=== PATIENT | female | born 1975 | race Caucasian/White ===

== ENCOUNTER 2017-07-18 00:15 | Outpatient (CLI) | payer MEDICAID ==
[~2017-07-18 00:15] MED LIST: ESCI10TA45 PO; FENO45CA PO; FISH1CAP14 PO; HYDR-3965 PO; INSU100I12 SQ; LANS30TA4 PO; LEVO100T46 PO; LIRA0.6P2 SQ; LIRA0.6P2 SUBCUT; LISI-222 PO; PENI500T2 PO; SAXA1TBM3 PO; VIT D PO
== END 2017-07-18 23:59 | disposition home or self-care (01) ==
LOC: DIABETIC 00:15
PROVIDERS: ATTEND Surgery
DX: E66.01 Morbid (severe) obesity due to excess calories (principal); E11.9 Type 2 diabetes mellitus without complications; Z87.891 Personal history of nicotine dependence
CPT/HCPCS: 97802

== ENCOUNTER 2017-09-11 02:52 | Outpatient (CLI) | payer MEDICAID | END 2017-09-11 23:59 | disposition home or self-care (01) | LOC: DIABETIC 02:52 | PROVIDERS: ATTEND Surgery | DX: E66.01 Morbid (severe) obesity due to excess calories (principal); E11.9 Type 2 diabetes mellitus without complications; Z79.899 Other long term (current) drug therapy; Z87.891 Personal history of nicotine dependence | CPT/HCPCS: 97802 ==

== ENCOUNTER 2017-11-21 04:31 | Outpatient (CLI) | payer MEDICAID | END 2017-11-21 23:59 | disposition home or self-care (01) | LOC: DIABETIC 04:31 | PROVIDERS: ATTEND Surgery | DX: E66.01 Morbid (severe) obesity due to excess calories (principal); E11.9 Type 2 diabetes mellitus without complications; Z87.891 Personal history of nicotine dependence; Z79.4 Long term (current) use of insulin | CPT/HCPCS: 97802 ==

== ENCOUNTER 2017-12-19 03:13 | Outpatient (CLI) | payer MEDICAID | END 2017-12-19 23:59 | disposition home or self-care (01) | LOC: DIABETIC 03:13 | PROVIDERS: ATTEND Surgery | DX: E66.01 Morbid (severe) obesity due to excess calories (principal); E11.9 Type 2 diabetes mellitus without complications; Z87.891 Personal history of nicotine dependence | CPT/HCPCS: 97802 ==

== ENCOUNTER 2018-01-18 02:00 | Outpatient (CLI) | payer MEDICAID | END 2018-01-18 23:59 | disposition home or self-care (01) | LOC: DIABETIC 02:00 | PROVIDERS: ATTEND Surgery | DX: E66.01 Morbid (severe) obesity due to excess calories (principal); E11.9 Type 2 diabetes mellitus without complications; Z79.4 Long term (current) use of insulin; Z87.891 Personal history of nicotine dependence | CPT/HCPCS: 97802 ==

== ENCOUNTER 2018-02-15 00:41 | Outpatient (CLI) | payer MEDICAID | END 2018-02-15 23:59 | disposition home or self-care (01) | LOC: DIABETIC 00:41 | PROVIDERS: ATTEND Surgery | DX: E66.01 Morbid (severe) obesity due to excess calories (principal); E11.9 Type 2 diabetes mellitus without complications; Z79.4 Long term (current) use of insulin; Z87.891 Personal history of nicotine dependence | CPT/HCPCS: 97802 ==

== ENCOUNTER 2019-08-23 20:56 | Emergency (ER) | payer MEDICAID ==
[~2019-08-23] VITALS: Ht 160 cm; Wt 68.2 kg
[2019-08-23 21:25] VITALS: BP 121/82
== END 2019-08-23 21:28 ==
LOC: ER 20:56
DX: Z04.1 Encounter for examination and observation following transport accident (principal); F15.10 Other stimulant abuse, uncomplicated; Z79.899 Other long term (current) drug therapy; Z79.4 Long term (current) use of insulin; V87.7XXA Person injured in collision between other specified motor vehicles (traffic), initial encounter; Y93.89 Activity, other specified; Y92.488 Other paved roadways as the place of occurrence of the external cause; Y99.8 Other external cause status
CPT/HCPCS: 82948; 99283

== ENCOUNTER 2024-10-08 18:20 | Emergency (ER) | payer MEDICAID ==
[~2024-10-08] VITALS: Ht 160 cm; Wt 61.3 kg
[2024-10-08 18:54] LABS: MEAN PLATELET VOLUME 7.8 FL (7.4-10.4); RED CELL DISTRIBUTION WIDTH 17.6 % (11.5-14.5)
[2024-10-08 19:19] LABS: CREATININE 0.66 MG/DL (0.40-0.90); PRO BRAIN NATRIURETIC PEPTIDE 175 PG/ML (0-125); TOTAL CARBON DIOXIDE 28.9 MMOL/L (24-32); eCRCL 88 ML/MIN; eGFR > 90 ML/MIN
--- NOTE | 2024-10-08 19:21 | RADIOLOGY REPORT ---
EXAM: DI CHEST,SINGLE VIEW CLINICAL HISTORY: CP TECHNIQUE: Single PA view of the chest WID: COMPARISON: None FINDINGS: Lines and tubes: None Chest: The heart size and pulmonary vasculature is within normal limits. Moderate airspace consolidation in the right upper lobe. No pneumothorax or pleural effusion. The osseous structures are grossly intact. IMPRESSION: 1. Moderate-sized right upper lobe pneumonia.
--- NOTE | 2024-10-08 19:34 | Physician Documentation ---
History of Present Illness ~ General Chief Complaint: Multiple Medical Complaints Stated Complaint: MULTIPLE MEDICAL ISSUES History of Present Illness Initial Comments This is a 48-year-old female who presents with pain to chest, abdomen, and back for the past three days, patient describes pain as burning. Medication Reconciliation Allergies: Coded Allergies: No Known Allergies (Unverified , 04/20/12) Scheduled Escitalopram Oxalate* (Lexapro*), 10 MG PO DAILY, (Reported) Fenofibric Acid (Trilipix), 45 MG PO HS, (Reported) Fish,Saf,Flx,Brg Oils/O3,6,9#2 (Rnob-Jkpz-Okiqtj Oil Softgel), 1 EACH PO BID, (Reported) Insulin Detemir (Levemir), 50 UNIT SQ BID, (Reported) Lansoprazole (Prevacid), 30 MG PO DAILY, (Reported) Levothyroxine Sodium* (Levoxyl*), 100 MCG PO DAILY, (Reported) Liraglutide (Victoza 3-Pedro), 1.2 MG SQ HS, (Reported) Liraglutide (Victoza 3-Pedro), 1.8 MG SUBCUT DAILY, (Reported) Lisinopril* (Lisinopril*), 2.5 MG PO HS, (Reported) Penicillin V Potassium* (Penicillin VK*), 500 MG PO Q6H Saxagliptin Hcl/Metformin Hcl (Kombiglyze Xr 5-1,000 Mg Tab), 1 EACH PO HS, (Reported) [Vit D], PO DAILY, (Reported) Scheduled PRN Hydrocodone Bit/Acetaminophen 5/325 MG ([place] 5/325 MG), 1 TAB PO Q4H PRN for moderate or severe pain Past Medical History Past Medical History: No Pertinent History Past Surgical History: noncontributory Drug Use: methamphetamine Lives with: Family Lives In: Home Review of Systems ROS As stated above in the HPI, otherwise all systems are reviewed and negative. Physical Exam Physical Exam Vital Signs: Temperature: 99.3, Source: Oral, Heart Rate: 113, Respiratory Rate: 16, BP: 106/75, Pulse Oximetry: 100, Weight: 61.320 Oxygen Flow Rate: 0 Physical Exam VITALS: Reviewed and as above. GENERAL: Alert, nontoxic appearing, no apparent distress. HEENT: RESPIRATORY: No increased work of breathing, no respiratory distress, speaking in full clear sentences CHEST: CV: BACK: GI: MUSCULOSKELETAL: SKIN: NEURO: PSYCH: Progress Results/Orders Results/Orders Vital Signs 10/08/24 18:32 Temp 99.3 Pulse 113 Resp 16 B/P (MAP) 106/75 Pulse Ox 100 O2 Flow Rate 0 Laboratory Tests Test 10/08/24 18:46 White Blood Count 13.3 H Red Blood Count 4.66 Hemoglobin 12.5 Hematocrit 37.3 Mean Corpuscular Volume 80.1 Mean Corpuscular Hemoglobin 26.9 L Mean Corpuscular Hemoglobin Concent 33.6 Red Cell Distribution Width 17.6 H Platelet Count 325 Mean Platelet Volume 7.8 Neutrophils (%) (Auto) 83.7 H Lymphocytes (%) (Auto) 9.5 L Monocytes (%) (Auto) 6.1 Eosinophils (%) (Auto) 0.4 Basophils (%) (Auto) 0.3 Neutrophils # (Auto) 11.2 H Lymphocytes # (Auto) 1.3 Monocytes # (Auto) 0.8 Eosinophils # (Auto) 0.0 Basophils # (Auto) 0.0 CBC Comment Sodium Level 136 Potassium Level 3.9 Chloride Level 100 Carbon Dioxide Level 28.9 Anion Gap 7 L Blood Urea Nitrogen 8 Creatinine 0.66 Estimated GFR/1.73 m2 > 90 BUN/Creatinine Ratio 12.1 Glucose Level 218 H Calcium Level 9.1 Troponin I High Sensitivity 16 Pro-B-Type Natriuretic Peptide 175 H Albumin 2.8 L Lipase 25 Chemistry Comments Medical Decision Making Findings MSE performed in triage and patient returned to ED lobby by nursing staff to await available ED room Departure Referrals: NO PRIMARY CARE PROVIDER (PCP) ALYCE ARELLANO NURSING ASSISTANT Oct 08, 2024 19:34
[2024-10-08 21:45] VITALS: BP 118/76; PULSE 113; RESP 14; TEMP 97.7; O2SAT 95
--- NOTE | 2024-10-09 06:46 | ELECTROCARDIOGRAPH REPORT ---
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 Laurita Frey Measurements Intervals [place] Rate: 112 P: 63 NC: 144 QRS: 8 QRSD: 85 T: 30 QT: 312 QTc: 426 Interpretive Statements Sinus tachycardia Consider right atrial enlargement Low voltage, precordial leads Baseline wander in lead(s) II,III,aVF Electronically Signed On 10-10-2024 0:30:[address] Laurita Frey Please click the below link to view image of tracing.
[2024-10-09] MEDS ORDERED: METF-1203 PO (20:15)
[2024-10-09] MEDS ORDERED: CHOL20002 PO (20:15)
[2024-10-09] MEDS ORDERED: METH-797 PO (20:15)
[2024-10-09] MEDS ORDERED: PANT40TA54 PO (20:15)
[2024-10-09] MEDS ORDERED: ATOR10TA70 PO (20:15)
[2024-10-09] MEDS ORDERED: LANTUS SQ (20:15)
[2024-10-10] MEDS ORDERED: LEVO750T68 PO (10:52)
[2024-10-10] MEDS ORDERED: LACT1CAP26 PO (10:52)
[2024-10-10] MEDS ORDERED: LANTUS SQ (10:52)
[2024-10-10] MEDS ORDERED: SACC250C9 PO (11:24)
== END 2024-10-09 02:11 | disposition left against medical advice (07) ==
LOC: ER 18:21
DX: R07.9 Chest pain, unspecified (principal); R10.9 Unspecified abdominal pain; M54.9 Dorsalgia, unspecified; R06.02 Shortness of breath
CPT/HCPCS: 36415; 71045; 80048; 83690; 83880; 84484; 85025; 93005; 99285

== ENCOUNTER 2024-10-09 04:43 | Inpatient (IN) | payer MEDICAID ==
[~2024-10-09] VITALS: Ht 160 cm; Wt 61.4 kg
--- NOTE | 2024-10-09 05:18 | Physician Documentation ---
History of Present Illness ~ Chief Complaint: Chest Pain Stated Complaint: MULTIPLE COMPLAINTS Time Seen by MD: 05:11 OK to notify your PCP?: Yes Source: patient, RN/MD, RN notes reviewed, old records Mode of Arrival: POV Exam Limitations: no limitations HPI BED 07 This patient is a 48 y/o female who presents to ED with chest pain, back pain, SOB, and fever. Patient was here earlier [facility], and eloped prior to finishing her workup. She was contacted [facility] and told to come back as her Xray shows that she had a right upper lobe pneumonia. Patient was asked more about her symptoms, and states she does not have a cough, but has had body aches, chills, fever, and chest pain (worse with breathing) which has been ongoing for 3 days. She has not been around anybody sick that she knows of. Patient denies any other associated symptoms at this time. Patient denies any alleviating or exacerbating factors. Medication Reconciliation Allergies: Coded Allergies: No Known Allergies (Unverified , 10/09/24) Scheduled Escitalopram Oxalate* (Lexapro*), 10 MG PO DAILY, (Reported) Fenofibric Acid (Trilipix), 45 MG PO HS, (Reported) Fish,Saf,Flx,Brg Oils/O3,6,9#2 (Ovaw-Phmj-Srtalp Oil Softgel), 1 EACH PO BID, (Reported) Insulin Detemir (Levemir), 50 UNIT SQ BID, (Reported) Lansoprazole (Prevacid), 30 MG PO DAILY, (Reported) Levothyroxine Sodium* (Levoxyl*), 100 MCG PO DAILY, (Reported) Liraglutide (Victoza 3-Pedro), 1.2 MG SQ HS, (Reported) Liraglutide (Victoza 3-Pedro), 1.8 MG SUBCUT DAILY, (Reported) Lisinopril* (Lisinopril*), 2.5 MG PO HS, (Reported) Penicillin V Potassium* (Penicillin VK*), 500 MG PO Q6H Saxagliptin Hcl/Metformin Hcl (Kombiglyze Xr 5-1,000 Mg Tab), 1 EACH PO HS, (Reported) [Vit D], PO DAILY, (Reported) Scheduled PRN Hydrocodone Bit/Acetaminophen 5/325 MG ([place] 5/325 MG), 1 TAB PO Q4H PRN for moderate or severe pain Past Medical History Past Medical History: No Pertinent History Past Surgical History: noncontributory Drug Use: methamphetamine Lives with: Family Lives In: Home Review of Systems All Other Systems at this time: Reviewed and Negative Physical Exam Vital Signs: RN Vital Signs have been reviewed: Yes, Temperature: 98.3, Source: Oral, Heart Rate: 107, Respiratory Rate: 16, BP: 104/67, Pulse Oximetry: 97, Weight: 62.000 Oxygen Flow Rate: 0 Physical Exam General: The patient is ill appearing. No acute distress. Skin: Skin is warm to touch. Diaphoretic. HEENT: Head was normocephalic and atraumatic. Eyes - pupils equal, round, reactive to light and accommodation. Extraocular movements were intact. Conjunctivae were nonicteric. The mouth and oropharynx were clear with moist mucous membranes. There were no pharyngeal exudates or erythema. Neck: Supple and nontender. There was no jugular venous distention, lymphadenopathy, thyromegaly or masses. Chest: Clear to auscultation bilaterally without wheezes, rales or rhonchi. No accessory muscle use. No dullness to percussion. Heart: Rate regular and rhythmic. S1, S2. No murmurs. Palpation of the chest wall was normal. No rubs or thrills. Abdomen: Soft, nontender and nondistended. Positive bowel sounds. No guarding or rebound. No hepatosplenomegaly or palpable masses. Extremities: No cyanosis, clubbing or edema. The patient moves all extremities. Pulses were equal and symmetric. Neurologic: Motor and sensation grossly intact. A & O x4. Psychologic: The patient was oriented to person, place and time. Progress Progress Note 0526: Paged Hospitalist 0532: Case discussed with hospitalist who agrees to evaluate patient for admission. Results/Orders Reviewed/noted all lab results: Yes Results/Orders Orders - LUCAS MEEKS MD Electrocardiogram (10/09/24 04:57) MG (10/09/24 05:23) Culture Blood (10/09/24 05:23) Normal Saline 1000ml (0.9% Sodium Chlori (10/09/24 05:25) BMP (10/09/24 05:23) Page Hospitalist (10/09/24 05:26) Fill Out Med Reconciliation (10/09/24 05:26) Hgb A1c (10/09/24 05:38) PHOS (10/09/24 05:38) Completed Orders - LUCAS MEEKS MD Cbc/Diff (10/09/24 05:23) Procalcitonin (10/09/24 05:23) Acetaminophen 325mg Tablet (Tylenol Tabl (10/09/24 05:23) Ceftriaxone 2gm/D5w 50ml Bag (Rocephin 2 (10/09/24 05:25) Hs Troponin I W Calculations (10/09/24 05:23) Azithromycin/Ns 500mg/250ml (Zithromax/N (10/09/24 05:25) Morphine 4mg/Ml Inj. (Morphine Inj.) (10/09/24 05:25) Ketorolac Trometh 15mg/Ml Vial (Toradol (10/09/24 05:25) Lacticsepsis (10/09/24 05:23) Ua W/Microscopic, Cult If Ind (10/09/24 05:38) Medications Received in ER Medications (Trade) Dose Ordered Sig/[place]arshall Route PRN Reason Start Time Stop Time Status Last Admin Dose Admin Sodium Chloride 2,000 ml @ 666.666 mls/hr ONCE ONCE IV 10/09/24 05:25 10/09/24 08:24 10/09/24 06:05 666.666 MLS/HR (Tylenol tablet) 650 mg ONCE STAT PO 10/09/24 05:23 10/09/24 05:27 DC 10/09/24 06:17 650 MG Ceftriaxone Sodium/Dextrose 50 ml @ 100 mls/hr ONCE ONCE IV 10/09/24 05:25 10/09/24 05:54 DC 10/09/24 06:13 100 MLS/HR (Toradol injection) 15 mg ONCE ONCE IV 10/09/24 05:25 10/09/24 05:27 DC 10/09/24 06:18 15 MG Vital Signs 10/09/24 10/09/24 04:44 05:00 Temp 98.8 98.3 Pulse 109 107 Resp 18 16 B/P (MAP) 118/73 104/67 (79) Pulse Ox 97 97 O2 Flow Rate 0 0 Laboratory Tests Test 10/09/24 05:38 White Blood Count 12.8 H Red Blood Count 4.00 L Hemoglobin 10.7 L Hematocrit 31.9 L Mean Corpuscular Volume 79.6 Mean Corpuscular Hemoglobin 26.7 L Mean Corpuscular Hemoglobin Concent 33.5 Red Cell Distribution Width 17.1 H Platelet Count 272 Mean Platelet Volume 8.2 Neutrophils (%) (Auto) 80.5 H Lymphocytes (%) (Auto) 9.8 L Monocytes (%) (Auto) 9.1 Eosinophils (%) (Auto) 0.3 Basophils (%) (Auto) 0.3 Neutrophils # (Auto) 10.3 H Lymphocytes # (Auto) 1.3 Monocytes # (Auto) 1.2 H Eosinophils # (Auto) 0.0 Basophils # (Auto) 0.0 CBC Comment Urine Specimen Description Cln catch midstream Urine Color Yellow Urine Clarity Slightly cloudy Urine pH 6.0 Urine Specific [place] 1.025 Urine Protein 100 H Urine Glucose (UA) Negative Urine Ketones 15 H Urine Occult Blood Moderate H Urine Nitrite Negative Urine Bilirubin Small Urine Urobilinogen 2.0 H Urine Leukocyte Esterase Negative Urine RBC 3-10 Urine WBC 0-4 Urine Squamous Epithelial Cells Moderate Urine Bacteria 2+ Urine Mucus Moderate Urine Culture Indicated Not ind Volume Urine Centrifuged 10 ml Urine Comment Sodium Level 134 L Potassium Level 3.3 L Chloride Level 98 L Carbon Dioxide Level 27.7 Anion Gap 8 Blood Urea Nitrogen 11 Creatinine 0.68 Estimated GFR/1.73 m2 > 90 BUN/Creatinine Ratio 16.2 Glucose Level 175 H Lactic Acid Level 1.2 Calcium Level 8.8 Magnesium Level 1.8 Troponin I High Sensitivity 28 Troponin I High Sens Percent Delta 47 Troponin I Hi Sens Absolute Change 9 Albumin 2.5 L Procalcitonin 1.47 H Chemistry Comments Re-Evaluation Re-Evaluation : Re-Evaluation: Improved, Unchanged Progress Patient is looking a bit ill. Patient was brought into bed seven. Patient has a rapid heart rate. Patient is diaphoretic sweaty with some chest pain mostly pleuritic on the right side. Patient's white count is elevated at 12.8 and a hemoglobin of 10 hematocrit of 31 with a left shift of 80% chemistry shows sodium of 134 potassium 3.3 glucose elevated at 175 lactic acid 1.2 procalcitonin is 1.47 troponin x2 is negative. Patient was given Rocephin Tylenol as well as Zithromax and some morphine and Toradol for pain. Patient was aggressively hydrated with 30 milligrams/kilogram of saline. Patient was treated for sepsis. Patient's blood pressure remained reassuring although a bit soft with a blood pressure of 104/67. Continuous monitoring engineer interpretation shows sinus tachycardia heart rate 100s, abnormal, my interpretation. Pulse oximetry monitor interpretation shows normal oxygenation 97% room air, normal, my interpretation. EKG/XRAY/CT/US/VASC/MRI EKG : Intepreting Monitor?: Yes Additional Comment 0501: EDMD Dr. Meeks interpreted the EKG to show sinus tachycardia at a rate of 102bpm, good R wave progression, nonspecific ST changes. QTc of 440 Chest X-Ray : Interpreted By: both Additional Comments [address] [address] DIAGNOSTIC RADIOLOGY Patient: NESTOR LOBO Medical Record: [id number] [facility] : 1975, Age: 48 Sex: Female Location: ER Patient Status: [facility] ER Service Date/Time: 10/08/241903 Ordering Physician: LUCAS MEEKS MD Exam: CHEST,SINGLE VIEW EXAM: DI CHEST,SINGLE VIEW CLINICAL HISTORY: CP TECHNIQUE: Single PA view of the chest WID: COMPARISON: None FINDINGS: Lines and tubes: None Chest: The heart size and pulmonary vasculature is within normal limits. Moderate airspace consolidation in the right upper lobe. No pneumothorax or pleural effusion. The osseous structures are grossly intact. IMPRESSION: 1. Moderate-sized right upper lobe pneumonia. Electronically Signed by:SALVADOR BULLARD MD Date & Time: 10/08/241918 Dictated by: SALVADOR BULLARD MD Dictation date and time: 09/02/25 1903 Primary Care Provider: NO PRIMARY CARE PROVIDER cc: LUCAS MEEKS MD ~ Heart Score: Heart Score Response (Comments) Value History Slightly Suspicious 0 EKG Repolarization Disturb 1 Age 45-64 1 Risk Factors 1 or 2 risk factors 1 Troponin Normal limit 0 Total 3 Medical Decision Making Additional info obtained from: old records Differential Dx:Considerations: Include: angina, aortic dissection, chest wall pain, cholelithiasis, CHF, costochondritis, esophageal reflux/spasm, gastritis, myocardial infarction, pericarditis, pleuritis, pancreatitis, pneumonia, pneumo thorax, pulmonary embolus, other Departure Time of Disposition: 05:26 Disposition: ADMITTED INPATIENT Admitted to Inpatient Unit: yes, to hospitalist Admission Level of Care: PCU with Tele Impression: Primary Impression: Pneumonia Qualified Codes: J18.9 - Pneumonia, unspecified organism Additional Impressions: Chest pain Qualified Codes: R07.9 - Chest pain, unspecified Sepsis Qualified Codes: A41.9 - Sepsis, unspecified organism Condition: Guarded Referrals: NO PRIMARY CARE PROVIDER (PCP) Education Educated: Patient Educated regarding: diagnosis, prognosis, need for follow up, other Signature Scribe Signature: Scribed for Lucas Meeks MD by Alessandra Bermudez. 10/09/24 05:26 Attestation: The note accurately reflects work and decisions made by me.Lucas Meeks MD 10/09/24 05:18 LUCAS MEEKS MD Oct 09, 2024 05:18
[2024-10-09] MEDS: morphine 4 MG/ML inj SYRINge IV ONE (05:25)
[2024-10-09 05:56] LABS: LEUKOCYTE ESTERASE ,URINE NEGATIVE (Neg); NITRITES, URINE NEGATIVE (Neg); OCCULT BLOOD,URINE MODERATE (Neg)
[2024-10-09 06:03] LABS: CREATININE 0.68 MG/DL (0.40-0.90); TOTAL CARBON DIOXIDE 27.7 MMOL/L (24-32); eCRCL 86 ML/MIN; eGFR > 90 ML/MIN
[2024-10-09] MEDS ORDERED: potassium Cl 40MEQ/1/2NS 520ml 520 ML IV PRN (06:05)
[2024-10-09] MEDS ORDERED: magnesium Cl slow-release 64mg tablet PO PRN (06:05)
[2024-10-09] MEDS ORDERED: magnesium sulf-water 4G/100mL 100 ML IV PRN (06:05)
[2024-10-09] MEDS: normal saline 1000ml 2,000 ML IV ONE (06:05)
[2024-10-09] MEDS ORDERED: potassium Cl 20 mEq SR tablet PO PRN (06:05)
[2024-10-09] MEDS ORDERED: magnesium hydroxide 30ml (MOM) UD suspension PO PRN (06:05)
[2024-10-09] MEDS ORDERED: ondansetron/PF 4mg/2ml inj IV PRN (06:05)
[2024-10-09] MEDS ORDERED: mag hydrox/Alum hydrox/simeth 30ml oral suspension PO PRN (06:05)
[2024-10-09] MEDS ORDERED: magnesium sulf-water 2g/50mL 50 ML IV PRN (06:05)
[2024-10-09 06:07] LABS: MEAN PLATELET VOLUME 8.2 FL (7.4-10.4); RED CELL DISTRIBUTION WIDTH 17.1 % (11.5-14.5)
[2024-10-09 06:09] LABS: UA COLLECTION TYPE CLN CATCH MIDSTREAM
[2024-10-09 06:11] LABS: MUCUS STRANDS MODERATE /LPF (Neg); SQUAMOUS EPITHELIAL CELL,UR MODERATE /LPF (FEW)
[2024-10-09] MEDS: CefTRIAXone 2gm/D5W 50ml BAG 50 ML IV ONE (06:13)
[2024-10-09] MEDS: ketorolac trometh 15mg/ml vial 15 MG/ML ML IV ONE (06:18)
[2024-10-09] MEDS: azithromycin/NS 500mg/250ml 250 ML IV ONE (06:43)
--- NOTE | 2024-10-09 06:48 | ELECTROCARDIOGRAPH REPORT ---
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 Laurita Frey Measurements Intervals [place] Rate: 102 P: 66 RI: 140 QRS: 75 QRSD: 98 T: -1 QT: 344 QTc: 449 Interpretive Statements Sinus tachycardia Low voltage, precordial leads Borderline T abnormalities, inferior leads Baseline wander in lead(s) II,aVF Electronically Signed On 10-09-2024 19:38:[address] Laurita Frey Please click the below link to view image of tracing.
[2024-10-09 06:51] LABS: PHOSPHORUS 2.6 MG/DL (2.3-4.5)
[2024-10-09] MEDS: ondansetron/PF 4mg/2ml inj IM ONE (06:57)
--- NOTE | 2024-10-09 06:59 | HISTORY AND PHYSICAL-Residence ---
History & Physical Providers to CC Resident Creating Document: RAJESH SPAIN, RES ~ History of Present Illness Reason for Admit\Complaint: Pneumonia History of Present Illness 48-year-old female past medical history of diabetes mellitus, hypothyroidism, hyperlipidemia, GERD presented to the ED with chief complaint of right-sided chest pain radiating to the right side of her back since the past three days. She reports that the chest pain started spontaneously three days ago and was associated with a fever and chills since the past three days. She reports that the chest pain is worse when she takes a deep breaths. Reports that she has been having associated worsening shortness of breaths and thinks it is because of the pain when she is taking deep breaths. The patient denied any associated cough or sputum production. She denied any recent travel history. She reports that the father of her kids who visits her regularly has been sick over the last few weeks. Denied any other contact with a sick people around her. The patient denied any other concerns or complaints at the moment. Allergies: Coded Allergies: No Known Allergies (Unverified , 10/09/24) Home Medications Home Medications Active Penicillin VK* (Penicillin V Potassium) 500 Mg Tablet 500 Mg PO Q6H [place] 5/325 MG (Acetaminophen/Hydrocodone Bitart) 5 Mg/325 Mg Tablet 1 Tab PO Q4H PRN Reported Uagv-Izzl-Yxaian Oil Softgel (Fish,Saf,Flx,Brg Oils/O3,6,9#2) 1 Each Capsule 1 Each PO BID [Vit D] PO DAILY Victoza 3-Pedro (Liraglutide) 0.6 Mg/0.1 Ml Pen.injctr 1.8 Mg SUBCUT DAILY Kombiglyze Xr 5-1,000 Mg Tab (Saxagliptin Hcl/Metformin Hcl) 1 Each Tbmp.24hr 1 Each PO HS Lisinopril* (Lisinopril) 5 Mg Tablet 2.5 Mg PO HS Trilipix (Fenofibric Acid) 45 Mg Capsule.dr 45 Mg PO HS Victoza 3-Pedro (Liraglutide) 0.6 Mg/0.1 Ml Pen.injctr 1.2 Mg SQ HS Prevacid (Lansoprazole) 30 Mg Tab.rap.dr 30 Mg PO DAILY Levoxyl* (Levothyroxine Sodium) 100 Mcg Tablet 100 Mcg PO DAILY Lexapro* (Escitalopram Oxalate) 10 Mg Tablet 10 Mg PO DAILY Levemir (Insulin Detemir) 100 Unit/1 Ml Insuln.pen 50 Unit SQ BID Past Medical History Past Medical History Hypothyroidism, diabetes mellitus, GERD, hyperlipidemia Past Surgical History Surgical History Comment Bariatric sleeve surgery, tubal ligation, , bilateral carpal tunnel, tonsillectomy, adenoidectomy Past Social History Social History Comment Lives at home, 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 Smokes a pack of cigarettes every day. Denies alcohol or recreational drug use. Drug Use: Methamphetamine Lives with: Family Lives In: Home ROS All Other Systems: Reviewed and Negative ROS CONSTITUTIONAL: No fever. No chills. No dizziness. No weakness, No weight gain or Loss. EYES: No pain, erythema, or discharge. No blurring of vision. ENT: No sore throat, No epistaxis. No tinnitus. CARDIOVASCULAR: no palpitations or syncope. No lower extremity edema. No paroxysmal nocturnal dyspnea. RESPIRATORY: SOB as mentioned in the HPI. Pleuritic chest pain. No cough, No hemoptysis. GASTROINTESTINAL: Normal appetite. No nausea, vomiting, diarrhea. No constipation. Epigastric and right upper abdominal pain that has been chronic and recurrent. GENITOURINARY: No frequency, urgency, nocturia. No hematuria or dysuria. MUSCULOSKELETAL: No arthralgias or myalgias. INTEGUMENTARY: no change in skin, hair, nails. No swelling. No bruising. No abrasions. NEUROLOGIC: No headache. No neck pain. No numbness or tingling of the extremities. No weakness. PSYCHIATRIC: no delusions, no depression, no loss of interest in normal activity or change in sleep pattern, no hallucinations or suicidal ideations ENDOCRINE: No fatigue. No weakness. No polydipsia, polyuria, no change in appetite. no heat or cold intolerance, no isauro, no dry skin. HEMATOLOGICAL: No bleeding. No petechiae. No bruising. ALLERGIES: No asthma. No urticaria. Exam Vitals: Vital Signs Date Time Temp Pulse Resp B/P (MAP) Pulse Ox O2 Delivery O2 Flow Rate FiO2 10/09/24 06:18 18 10/09/24 05:00 98.3 107 104/67 (79) 97 0 General: General: Awake and Alert, in moderate distress. Toxic appearing. HEENT: Conjunctiva pink, Sclera clear, Mucus Membranes moist. Neck: Supple without masses and tenderness. Resp: Unlabored. Lungs clear to auscultation bilaterally. Heart: Regular Rate and rhythm, normal S1 and S2 without murmur, rub or gallop. Abdomen: Soft and non tender no organomegaly Extremities: No cyanosis,clubbing or edema. Skin: Warm and Dry. Neurology: Cranial nerves 2-12 intact. No focal motor or sensory deficits. Musculoskeletal: No restricted range of motion. No deformities noted. Diagnostic Data Last Recorded Lab Results: 10/09/2453710/09/24537 Advance Care Planning Advanced Care planning: Add on additional 30 min Additional Plan Community-acquired pneumonia, covering Gram-positive and Gram-negative bacteria Acute respiratory distress Pleuritic chest pain The patient's chest x-ray significant for moderate right upper lobe pneumonia. Patient has a leukocytosis with a WBC count of 13.3. The protocol is elevated. Started the patient on IV ceftriaxone and IV Zithromax. Received one dose of IV methylprednisolone. We will continue p.o. prednisolone 40 daily. Follow up with blood cultures. Respiratory therapy evaluation and treatment to be done. DuoNeb nebulization q.4 hours. Hypokalemia Replacement of potassium as per protocol. Continue to monitor the patient's electrolytes. Anemia Most likely iron deficiency. Follow up with the end panel. Hypothyroidism Follow up with TSH. Restart home medications once med reconciliation is done. Diabetes mellitus. Follow up with the A1c. Starting the patient on hyperglycemia/hypoglycemia protocol. Tobacco use disorder Add nicotine patches if needed. Lifestyle modifications and importance of quitting smoking to be reinforced. Hyperlipidemia Follow up with lipid panel. CODE STATUS: Full code DVT prophylaxis: Heparin subQ GI prophylaxis: P.o. Protonix Diet: Regular Disposition: Continue medical management. Anticipate discharge home in the next 24 hours. Rajesh Spain MD Internal Medicine Resident, PGY-3 Plan reviewed with bedside team. Patient seen through remote audiovisual assessment through HIPAA compliant setup. All labs, flowsheets, and images reviewed Cumulative nonprocedural care time spent in directed patient care = 30 min Date of Service: Oct 09, 2024 Billing Provider: MANUELA ZIMMERMAN MD, SURYA PRATIK, JANINE Oct 09, 2024 06:59 SABINE ZHAO MD Oct 09, 2024 08:01
[2024-10-09] MEDS: normal saline 1000ml 1,000 ML IV SCH (07:00)
[2024-10-09] MEDS: ipratropium/albuterol 3ml nebule NEB SCH (07:00)
[2024-10-09] MEDS ORDERED: DEXTROSE 15 GM of carb/4 tabs (each vial/BOTTLE has 4 tablets) PO PRN ×2 (07:10)
[2024-10-09] MEDS ORDERED: dextrose 50%-water 50ml dispensing syringe IV PRN ×2 (07:10)
[2024-10-09] MEDS ORDERED: glucagon, human recombinant 1mg kit SUBCUT PRN (07:10)
[2024-10-09] MEDS: docusate sod 100mg capsule PO SCH (08:00)
[2024-10-09] MEDS ORDERED: methylPREDNISolone sod succ/PF 40mg inj. IV SCH (08:00)
[2024-10-09] MEDS: K and/or MAG REPLACEMENT MC SCH (08:00)
[2024-10-09] MEDS: heparin, porcine 5000 units/ml vial SQ SCH (09:03)
[2024-10-09] MEDS: pantoprazole 40mg Tablet.DR PO SCH (09:03)
[2024-10-09 11:24] VITALS: PULSE 75; RESP 16; O2SAT 95
[2024-10-09] MEDS: INSULIN LISPRO 100 UNIT/ML INSULN.PEN MULTI-DOSE SQ SCH (12:39)
[2024-10-09 15:08] VITALS: BP 98/70; PULSE 75; RESP 16; TEMP 97.6; O2SAT 97
[2024-10-09 18:00] VITALS: BP 109/69; PULSE 94; RESP 17; O2SAT 97
[2024-10-09] MEDS: insulin regular, human 10 units/0.1 ml syringe IV ONE (18:05)
[2024-10-09] MEDS: insulin regular, human U-100 10ml vial - multi-dose IV ONE (18:38)
[2024-10-09] MEDS: INSULIN LISPRO 100 UNIT/ML INSULN.PEN MULTI-DOSE SQ ONE (19:54)
[2024-10-09] MEDS ORDERED: METH-797 PO (20:15)
[2024-10-09] MEDS ORDERED: ATOR10TA70 PO (20:15)
[2024-10-09] MEDS ORDERED: LANTUS SQ (20:15)
[2024-10-09] MEDS ORDERED: CHOL20002 PO (20:15)
[2024-10-09] MEDS ORDERED: METF-1203 PO (20:15)
[2024-10-09] MEDS ORDERED: PANT40TA54 PO (20:15)
[2024-10-09 20:29] VITALS: PULSE 81; RESP 16; O2SAT 99
[2024-10-09 20:37] VITALS: PULSE 84; RESP 16
[2024-10-09] MEDS ORDERED: insulin glargine (Lantus) pen - multi-dose SQ SCH (21:00)
[2024-10-09 21:28] LABS: CREATININE 1.00 MG/DL (0.40-0.90); TOTAL CARBON DIOXIDE 21.6 MMOL/L (24-32); eCRCL 58 ML/MIN; eGFR 60 ML/MIN
[2024-10-09 22:00] VITALS: BP 103/69; PULSE 96; RESP 16; TEMP 97.9; O2SAT 97
[2024-10-09] MEDS: insulin glargine (Lantus) pen - multi-dose SQ SCH (22:47)
[2024-10-09] MEDS: potassium Cl 20 mEq SR tablet PO PRN (22:52)
[2024-10-09 23:02] LABS: PRO BRAIN NATRIURETIC PEPTIDE 315 PG/ML (0-125)
[2024-10-10 00:25] VITALS: PULSE 95; RESP 16; O2SAT 95
[2024-10-10 00:30] VITALS: PULSE 93; RESP 16
[2024-10-10 06:00] VITALS: BP 98/64; PULSE 82; RESP 16; TEMP 97.5; O2SAT 98
[2024-10-10 06:04] LABS: MEAN PLATELET VOLUME 8.5 FL (7.4-10.4); RED CELL DISTRIBUTION WIDTH 17.3 % (11.5-14.5)
[2024-10-10 06:33] LABS: CHOL/HDL RATIO 9.9 (0.00-4.99); CREATININE 0.67 MG/DL (0.40-0.90); LDL CHOLESTEROL 49 MG/DL (50-100); TOTAL CARBON DIOXIDE 23.5 MMOL/L (24-32); eCRCL 87 ML/MIN; eGFR > 90 ML/MIN
[2024-10-10 07:42] VITALS: PULSE 76; RESP 16; O2SAT 99
[2024-10-10 07:44] VITALS: PULSE 82; RESP 16
[2024-10-10] MEDS: lactobacillus rhamnosus 10,000 MMU CELLS/CAPSULE PO SCH (08:52)
[2024-10-10] MEDS: CefTRIAXone/D5W-Rocephin 1gm 50 ML IV SCH (08:52)
[2024-10-10] MEDS: insulin glargine (Lantus) pen - multi-dose SQ SCH (08:57)
[2024-10-10] MEDS: INSULIN LISPRO 100 UNIT/ML INSULN.PEN MULTI-DOSE SQ SCH (08:59)
[2024-10-10 10:00] VITALS: BP 96/61; PULSE 87; RESP 17; TEMP 97.8; O2SAT 100
[2024-10-10] MEDS ORDERED: LANTUS SQ (10:52)
[2024-10-10] MEDS ORDERED: LACT1CAP26 PO (10:52)
[2024-10-10] MEDS ORDERED: LEVO750T68 PO (10:52)
[2024-10-10] MEDS: azithromycin/NS 500mg/250ml 250 ML IV SCH (11:05)
[2024-10-10] MEDS ORDERED: SACC250C9 PO (11:24)
--- NOTE | 2024-10-10 17:47 | DISCHARGE SUMMARY-Residence ---
Discharge Summary Providers to CC Resident Creating Document: BEN GARDNERCHEIKH CLEVE, RES ~ Discharge Summary Admission Diagnosis: Community acquired PNA Hospital Course DATE OF ADMISSION: 10/09/2024 DATE OF DISCHARGE: 10/10/2024 Discharge Diagnosis\Comment: Sepsis secondary Community-acquired pneumonia, covering Gram-positive and Gram- negative bacteria Acute respiratory distress Pleuritic chest pain Hypokalemia Anemia Hypothyroidism Diabetes mellitus Tobacco use disorder Hyperlipidemia Operations\Procedures: none Consultants: None Complications: None Condition on DC: Stable New Medications: Lactobacillus Rhamnosus (Culturelle) 10 Billion Cell Capsule 1 CAP PO BID for 30 Days, #60 CAP 0 Refills Levofloxacin (Levofloxacin) 750 Mg Tablet 750 MG PO DAILY for 7 Days, #7 TAB Saccharomyces Boulardii (Probiotic) 250 Mg Capsule 1 CAP PO Q12H for 14 Days, #28 CAP 0 Refills Changed Medications: Insulin Glargine,Hum.rec.anlog* (Lantus*) 100 Unit/1 Ml Vial 18 UNITS SQ QAM for 30 Days, #1 VIAL (Changed from: Take 18 units in AM and 12 units at bed time) Take 22 units in AM and 14 units at bed time Continued Medications: Atorvastatin Calcium (Atorvastatin Calcium) 10 Mg Tablet 1 TAB PO HS Cholecalciferol (Vitamin D3) (Vitamin D3) 50 Mcg (2000 Unit) Capsule 1 CAP PO DAILY Levothyroxine Sodium* (Levoxyl*) 100 Mcg Tablet 100 MCG PO DAILY Metformin HCl (Metformin HCl) 500 Mg Tablet 2 TAB PO BID Methocarbamol (Methocarbamol) 500 Mg Tablet 1 TAB PO Q6H PRN for muscle spasms Pantoprazole Sodium (Pantoprazole Sodium) 40 Mg Tablet.dr 1 TAB PO DAILY Discharge Summary: HPI: 48-year-old female past medical history of diabetes mellitus, hypothyroidism, hyperlipidemia, GERD presented to the ED with chief complaint of right-sided chest pain radiating to the right side of her back since the past three days. She reports that the chest pain started spontaneously three days ago and was associated with a fever and chills since the past three days. She reports that the chest pain is worse when she takes a deep breaths. Reports that she has been having associated worsening shortness of breaths and thinks it is because of the pain when she is taking deep breaths. The patient denied any associated cough or sputum production. She denied any recent travel history. She reports that the father of her kids who visits her regularly has been sick over the last few weeks. Denied any other contact with a sick people around her. The patient denied any other concerns or complaints at the moment. Hospital course: 48 years old female patient came to the hospital with chief complaint of right- sided pleuritic chest pain. The patient was admitted with diagnosis of community-acquired pneumonia, meeting criteria for sepsis. The patient was started on antibiotics, upon the following day the patient reported significant improvement of symptoms. The patient stated that her chest pain resolved. The patient was also found with uncontrolled diabetes mellitus reason for which the patient was placed on hyper/hypoglycemia protocol. Hemoglobin A1c came back with a level of 9.5, insulin glargine dose increased. The patient recovered sooner than expected for her condition, the patient remained hemodynamically stable, eager to be discharged home. The patient will be discharged. Discharge course: The patient remained hemodynamically stable. The patient will be discharged with the following instructions: Come back to the emergency department or call 911 if severe chest pain, shortness of breath, fever, is evidenced. take levofloxacin 1 tablet of 750 mg daily for 7 days. Take culturelle 1 capsule every 12 hours. We are incresing your insulin lantus to 22 units in the morning and 14 units at night. Follow up with your primary care physician for monitoring your blood glucose and A1C which was 9.5 during this hospitalization. Physical exam: General: Well alert, well oriented, not confused, not agitated, not in acute distress, well cooperated during the physical. HEENT: Conjunctive are pink, sclerae clear, no icterus, pupil is equal in both sides, reactive to light, no ear discharge, no pharyngeal erythema or an edema. Neck: Supple, no JVD, no lymphadenopathy and thyromegaly. Chest: Equal air entry on both lungs, no additional sounds no rhonchi no wheezing at the moment. Cardiovascular: S1-S2 regular sinus rhythm and, regular rate, no gallops, no rubs, no murmurs Abdomen: No visible peristalsis, Bowel sounds present on auscultation, soft, nontender, no guarding, no rigidity Extremities: No obvious deformities, no pitting edema bilaterally, capillary refill intact, peripheral pulsations are intact on both sides Central Nervous System: No focal neurological deficits, no motor or sensory weakness in all 4 extremities, could move all 4 extremities, 2+ deep tendon reflexes, negative Babinski. Musculoskeletal: No joint swelling, deformities, inflammations, and no scoliosis and back tenderness Skin: Warm and dry. Vital Signs Date Time Temp Pulse Resp B/P (MAP) Pulse Ox O2 Delivery O2 Flow Rate FiO2 10/10/24 10:00 97.8 87 17 96/61 (73) 100 Room Air 10/10/24 07:44 0.0 10/10/24 07:42 21 Laboratory Tests Test 10/09/24 05:38 10/09/24 08:24 10/09/24 12:10 10/09/24 17:36 White Blood Count 12.8 X10'3 Red Blood Count 4.00 X10'6 Hemoglobin 10.7 g/dl Hematocrit 31.9 % Mean Corpuscular Volume 79.6 FL Mean Corpuscular Hemoglobin 26.7 PG Mean Corpuscular Hemoglobin Concent 33.5 g/dL Red Cell Distribution Width 17.1 % Platelet Count 272 X10'3 Mean Platelet Volume 8.2 FL Neutrophils (%) (Auto) 80.5 % Lymphocytes (%) (Auto) 9.8 % Monocytes (%) (Auto) 9.1 % Eosinophils (%) (Auto) 0.3 % Basophils (%) (Auto) 0.3 % Neutrophils # (Auto) 10.3 X10'3 Lymphocytes # (Auto) 1.3 X10'3 Monocytes # (Auto) 1.2 X10'3 Eosinophils # (Auto) 0.0 X10'3 Basophils # (Auto) 0.0 X10'3 CBC Comment Urine Specimen Description Cln catch midstream Urine Color Yellow Urine Clarity Slightly cloudy Urine pH 6.0 Urine Specific [place] 1.025 Urine Protein 100 mg/dl Urine Glucose (UA) Negative mg/dl Urine Ketones 15 mg/dl Urine Occult Blood Moderate Urine Nitrite Negative Urine Bilirubin Small Urine Urobilinogen 2.0 E.U/dL Urine Leukocyte Esterase Negative Urine RBC 3-10 /HPF Urine WBC 0-4 /HPF Urine Squamous Epithelial Cells Moderate /LPF Urine Bacteria 2+ /HPF Urine Mucus Moderate /LPF Urine Culture Indicated Not ind Volume Urine Centrifuged 10 ml Urine Comment Sodium Level 134 MMOL/L Potassium Level 3.3 MMOL/L Chloride Level 98 MMOL/L Carbon Dioxide Level 27.7 MMOL/L Anion Gap 8 Blood Urea Nitrogen 11 MG/DL Creatinine 0.68 MG/DL Estimated GFR/1.73 m2 > 90 ML/MIN BUN/Creatinine Ratio 16.2 Glucose Level 175 MG/DL Hemoglobin A1c 9.5 % Lactic Acid Level 1.2 MMOL/L Calcium Level 8.8 MG/DL Phosphorus Level 2.6 MG/DL Magnesium Level 1.8 MG/DL Troponin I High Sensitivity 28 ng/L Troponin I High Sens Percent Delta 47 % Troponin I Hi Sens Absolute Change 9 ng/L Albumin 2.5 G/DL Procalcitonin 1.47 NG/ML Chemistry Comments Glucometer 189 mg/dl 379 mg/dl 529 mg/dl Test 10/09/24 19:07 10/09/24 21:01 10/09/24 22:31 10/10/24 00:33 Glucometer > 600 mg/dl 520 mg/dl 487 mg/dl 395 mg/dl Sodium Level 131 MMOL/L Potassium Level 3.2 MMOL/L Chloride Level 98 MMOL/L Carbon Dioxide Level 21.6 MMOL/L Anion Gap 11 Blood Urea Nitrogen 21 MG/DL Creatinine 1.00 MG/DL Estimated GFR/1.73 m2 60 ML/MIN BUN/Creatinine Ratio 21.0 Glucose Level 535 MG/DL Calcium Level 8.1 MG/DL Total Bilirubin 0.3 MG/DL Aspartate Amino Transf (AST/SGOT) 18 U/L Alanine Aminotransferase (ALT/SGPT) 27 U/L Alkaline Phosphatase 105 IU/L Pro-B-Type Natriuretic Peptide 315 PG/ML Total Protein 6.6 G/DL Albumin 2.3 G/DL Globulin 4.3 G/DL Albumin/Globulin Ratio 0.5 Chemistry Comments Test 10/10/24 03:33 10/10/24 05:34 10/10/24 07:44 10/10/24 12:33 Glucometer 379 mg/dl 289 mg/dl 295 mg/dl White Blood Count 8.6 X10'3 Red Blood Count 3.35 X10'6 Hemoglobin 9.1 g/dl Hematocrit 27.1 % Mean Corpuscular Volume 80.8 FL Mean Corpuscular Hemoglobin 27.2 PG Mean Corpuscular Hemoglobin Concent 33.7 g/dL Red Cell Distribution Width 17.3 % Platelet Count 271 X10'3 Mean Platelet Volume 8.5 FL Neutrophils (%) (Auto) 82.2 % Lymphocytes (%) (Auto) 11.5 % Monocytes (%) (Auto) 6.2 % Eosinophils (%) (Auto) 0 % Basophils (%) (Auto) 0.1 % Neutrophils # (Auto) 7.1 X10'3 Lymphocytes # (Auto) 1.0 X10'3 Monocytes # (Auto) 0.5 X10'3 Eosinophils # (Auto) 0.0 X10'3 Basophils # (Auto) 0.0 X10'3 CBC Comment Erythrocyte Sedimentation Rate 95 MM/HR Sodium Level 135 MMOL/L Potassium Level 3.7 MMOL/L Chloride Level 104 MMOL/L Carbon Dioxide Level 23.5 MMOL/L Anion Gap 8 Blood Urea Nitrogen 11 MG/DL Creatinine 0.67 MG/DL Estimated GFR/1.73 m2 > 90 ML/MIN BUN/Creatinine Ratio 16.4 Glucose Level 330 MG/DL Calcium Level 7.9 MG/DL Total Bilirubin 0.2 MG/DL Aspartate Amino Transf (AST/SGOT) 13 U/L Alanine Aminotransferase (ALT/SGPT) 25 U/L Alkaline Phosphatase 83 IU/L C-Reactive Protein 12.90 MG/DL Total Protein 6.1 G/DL Albumin 2.0 G/DL Globulin 4.1 G/DL Albumin/Globulin Ratio 0.5 Triglycerides Level 216 MG/DL Cholesterol Level 89 MG/DL LDL Cholesterol 49 MG/DL HDL Cholesterol 9 MG/DL Cholesterol/HDL Ratio 9.9 Chemistry Comments Imaging: Chest x-ray on 10/08/2024: Moderate-sized right upper lobe pneumonia. *Problems/Diagnosis: (1) Pleuritic chest pain Status: Acute (2) Uncontrolled diabetes mellitus Status: Acute (3) Sepsis Status: Acute (4) Pneumonia Status: Acute Total Time Spent on D/C: > 30 Minutes Date of Service: Oct 10, 2024 Billing Provider: ARA FELIX MD Common Visit Codes: 58050-HHT/OBS DISCH DAY >30min Problem Qualifiers (1) Sepsis: Sepsis type: sepsis due to unspecified organism Sepsis acute organ dysfunction status: without acute organ dysfunction Qualified Codes: A41.9 - Sepsis, unspecified organism (2) Pneumonia: Pneumonia type: due to unspecified organism Laterality: right Lung location: upper lobe of lung Qualified Codes: J18.9 - Pneumonia, unspecified organism CHEIKH WEBB, RES Oct 10, 2024 17:43 ARA FELIX MD Oct 10, 2024 22:24
[2024-10-10] MEDS ORDERED: insulin glargine (Lantus) pen - multi-dose SQ SCH (21:00)
== END 2024-10-10 14:55 | disposition home health service (06) | DRG 720 ==
LOC: ER 04:44 → ED HOLD 06:06 → ORTHO 4S 14:47
PROVIDERS: ADMIT Internal Medicine Critical Care Medicine; ATTEND Internal Medicine
DX: A41.9 Sepsis, unspecified organism (principal); J18.9 Pneumonia, unspecified organism; E03.9 Hypothyroidism, unspecified; D64.9 Anemia, unspecified; E11.9 Type 2 diabetes mellitus without complications; F15.90 Other stimulant use, unspecified, uncomplicated; K21.9 Gastro-esophageal reflux disease without esophagitis; E87.6 Hypokalemia; E78.5 Hyperlipidemia, unspecified; Z79.899 Other long term (current) drug therapy; Z72.0 Tobacco use
CPT/HCPCS: 36415; 80048; 80053; 80061; 81001; 82948; 83036; 83605; 83735; 83880; 84100; 84145; 84484; 85025; 85651; 86140; 87040; 87081; 93005; 94640; 94760; 96365; 96367; 96372; 99285; G0378; J0456; J0696; J1644; J1815; J1885; J2919; J7030; J7120; J7512